=== PATIENT | male | born 1980 | race Caucasian/White ===

== ENCOUNTER → 2016-06-03 | Outpatient (CLI) | payer OTHER ==
[~2016-06-03] MED LIST: ANTIBIOTIC; BACTRIM DS TABL1 TAB PO; BENZONATATE PO; HYDROCODON-ACE1 EAC5 PO; NO MEDICATIONS; NORCO1 TAB 10/3 PO; PAIN MED; PEPCID PO; PHENERGAN25 M1 PO; REGLAN10 MG PO; TACLONEX
--- NOTE | ~2016-06-03 | US77 ---
[facility] A Service of [facility] RADIOLOGY TEXT RESULTS PATIENT: DELICIA KATE LOCATION: [facility] : [birth year] UNIT #: [id number] AGE: [address]: Ruben Ram MD SEX: M ORDER DR: [id number] [place] [id number] O MR#: [id number] Acc #: [id number] NAME: DELICIA KATE : 1980 SEX: M STUDY DATE/TIME: 06/03/2016 10:08 UNIT: SGUS ROOM: STUDY DESCRIPTION: US Kidney Bilateral Complete Attending Physician: Ruben Ram M.D. Referring Physician: Ruben Ram M.D. Ordering Physician: Ruben Ram M.D. Primary Care Physician: Primary Care Physician No MEDICAL IMAGING REPORT This report is preliminary unless electronic signature is present. EXAM Renal ultrasound. INDICATIONS Renal calculus. Recent left-sided stone removal on 05/05/2016. Followup. PROCEDURE Vazquez-scale and Doppler imaging of the kidneys and bladder. COMPARISON CT from 05/01/2016 FINDINGS Right kidney is not well seen on this study. No obvious hydronephrosis. The left kidney measures 13.4 cm with no obvious hydronephrosis. Unremarkable bladder. IMPRESSION 1. No hydronephrosis. 2. Unremarkable appearance of the left kidney. The right kidney is not well seen on this study. 1. Dictated by... Zachary Almonte M.D. THIS IS AN ELECTRONICALLY VERIFIED REPORT Zachary Almonte M.D. at 06/04/2016 7:36 AM MARYD/karen TD: 06/03/2016 12:06 JOB #: [id number] [facility] A Service [facility] RADIOLOGY TEXT RESULTS PATIENT: DELICIA KATE LOCATION: [facility] : 76 UNIT #: [id number] AGE: [address]: Ruben Ram MD SEX: M ORDER DR: MEDICAL IMAGING REPORT
== END | disposition home or self-care (01) ==
LOC: SGUS 09:22
DX: N20.1 Calculus of ureter (principal)
CPT/HCPCS: 76775

== ENCOUNTER 2016-06-22 00:41 | Emergency (ER) | payer OTHER ==
--- NOTE | ~2016-06-22 | CT4 ---
[facility] A Service of [facility] RADIOLOGY TEXT RESULTS PATIENT: DELICIA KATE LOCATION: SED : 76 UNIT #: [id number] AGE: [address]: Jasbir Barber MD SEX: M ORDER DR: [id number] [address] [address] [id number] E MR#: [id number] Acc #: [id number] NAME: DELICIA KATE : 1980 SEX: M STUDY DATE/TIME: 06/22/2016 0:53 UNIT: SED ROOM: STUDY DESCRIPTION: CT Abd and Pelv Wo Cont Attending Physician: Jasbir Barber M.D. Ordering Physician: Jasbir Barber M.D. Primary Care Physician: Primary Care Physician No MEDICAL IMAGING REPORT This report is preliminary unless electronic signature is present. EXA, Abdomen and pelvis CT no contrast 06/22/2016 INDICATIONS 36-year-old male with flank pain on the left, onset of symptoms 1800 hours last night. TECHNIQUE Noncontrast CT of the abdomen and pelvis was performed. COMPARISON STUDY: 05/01/[address] exam was performed with one or more of the following radiation dose reduction techniques: automatic exposure control, adjustment of mA and/or kV according to patient size, and iterative reconstruction. FINDINGS CT ABDOMEN: Exam markedly degraded by noncontrast technique. Included lung bases are clear. Aorta demonstrates no aneurysm. The spleen is prominent. The adrenal glands are normal. Pancreas and gallbladder unremarkable. Liver unremarkable. The extreme dome of the liver is not included in the field of view. The right kidney is unremarkable. The left kidney demonstrates at least moderate inflammatory change and hydronephrosis on the left and proximal hydroureter secondary to an obstructing 7 x 4 mm stone at the level of the sjp-ry-vjozla ureter. Incidental umbilical hernia containing fat only. CT PELVIS: Bladder unremarkable. Prostate unremarkable. No drainable fluid collection in the pelvis. Bowel unremarkable. Appendix normal. Inguinal canal is unremarkable. There is no suspicious bone lesion. [facility] A Service of [facility] RADIOLOGY TEXT RESULTS PATIENT: DELICIA KATE LOCATION: [facility] : [birth year] UNIT #: [id number] AGE: [address]: Jasbir Barber MD SEX: M ORDER DR: There are degenerative changes in the lumbar spine. IMPRESSION 1. At least moderate to moderately severe hydronephrosis and inflammatory change of the left kidney secondary to an obstructing 4 x 7 mm stone in the mid to distal left ureter. 2. The appendix is normal. 3. Fat-containing umbilical hernia without complicating features. Dictated by... Frandy Martinez M.D. THIS IS AN ELECTRONICALLY VERIFIED REPORT Frandy Martinez M.D. at 06/22/2016 10:00 PM Jammie TD: 06/22/2016 09:45 JOB #: [id number] MEDICAL IMAGING REPORT Page 1 of 1
[2016-06-22 01:20] LABS: BASOPHIL# 0.1 X10e3 (0-0.3); BASOPHIL% 0.6 % (0-2.5); EOSINOPHIL# 0.2 X10e3 (0-0.7); EOSINOPHIL% 1.6 % (0.0-7.0); HEMATOCRIT 48.2 % (38.0-50.0); HEMOGLOBIN 15.9 gm/dL (13.0-16.0); LYMPHOCYTE# 1.9 X10e3 (1.0-3.5); LYMPHOCYTE% 12.9 % (17.0-45.0); MEAN CELL VOLUME 79.8 FL (83-96); MEAN CORPUSCULAR HEMOGLOBIN 26.3 PG (28-34); MEAN PLATELET VOLUME 9.1 FL (6.5-11.5); MONOCYTE# 1.2 X10e3 (0-1.0); MONOCYTE% 7.8 % (3.0-12.0); NEUTROPHIL# 11.6 X10e3 (1.5-7.1); NEUTROPHIL% 77.1 % (40-75); PLATELET COUNT 230 X10e3 (140-420); RED BLOOD COUNT 6.04 X10e (3.90-5.60); RED CELL DISTRIBUTION WIDTH 13.9 % (11.0-15.5)
[2016-06-22 01:22] LABS: URINE SOURCE CLEAN CATCH
[2016-06-22 01:23] LABS: DIFF IND NO
[2016-06-22 01:24] LABS: URINE APPEARANCE CLEAR; URINE BILIRUBIN NEG (NEG); URINE BLOOD 3+ (NEG); URINE COLOR YELLOW; URINE GLUCOSE NEG (NORM); URINE KETONE NEG (NEG); URINE LEUKOCYTE ESTERASE NEG (NEG); URINE NITRATE NEG (NEG); URINE PH 5.5 (5-8); URINE PROTEIN TRACE (NEG); URINE SPECIFIC GRAVITY >=1.030 (1.003-1.035)
[2016-06-22 01:25] LABS: MICRO INDICATED? YES
[2016-06-22 01:26] LABS: CULTURE INDICATED? NO; URINE BACTERIA NEG (NEG); URINE SQUAMOUS EPITHELIAL CELL FEW /[HPF]; URINE WBC 0-2 /[HPF] (0-5)
[2016-06-22 01:36] LABS: BUN/CREATININE RATIO 15.83; CALCIUM SERUM 8.8 mg/dL (8.4-10.2); CREATININE SERUM 1.2 mg/dL (0.6-1.4); GLOM FILT RATE Estimated 76.3 mL/min (>60)
== END 2016-06-22 02:29 | disposition home or self-care (01) ==
LOC: SED 00:41
PROVIDERS: Emergency Medicine
DX: N13.2 Hydronephrosis with renal and ureteral calculous obstruction (principal); Z88.0 Allergy status to penicillin
CPT/HCPCS: 74176; 80048; 81003; 85025; 96361; 96374; 99284; J1885